=== PATIENT | male | born 1945 | race Caucasian/White ===

== ENCOUNTER → 2022-05-24 08:48 | Outpatient (CLI) | payer MEDICARE, SELFPAY ==
[2022-05-24 20:24] LABS: Cholesterol 158 mg/dL (140-199); Glucose 95 mg/dL (80-110); HDL Cholesterol 85 mg/dL (40-60); LDL Cholesterol Calculated 59 mg/dL (<100); Triglycerides 68 mg/dL (35-150)
[2022-05-24 20:44] LABS: Prostate Specific Antigen Scrn 1.06 ng/mL (0.1-4.0)
[2022-05-26 18:52] LABS: Hep C Virus Ab w/Reflex Quant NEGATIVE s/c (NEGATIVE)
== END ==
PROVIDERS: PCP Family Medicine; Visit Provider Family Medicine
DX: Z13.1 Encounter for screening for diabetes mellitus (principal); Z12.5 Encounter for screening for malignant neoplasm of prostate; Z11.59 Encounter for screening for other viral diseases; Z13.220 Encounter for screening for lipoid disorders
CPT/HCPCS: 80061; 82947; 86803; G0103

== ENCOUNTER → 2023-12-13 13:27 | Outpatient (CLI) | payer MEDICARE, SELFPAY ==
[2023-12-13 18:55] LABS: Add Manual Diff / Slide Review NO; Basophils Absolute Auto 0 /uL (0-100); Basophils Percent Auto 0.4 % (0-2); Eosinophils Absolute Auto 200 /uL (0-450); Eosinophils Percent Auto 3.6 % (2-4); Hematocrit 39.1 % (41-53); Hemoglobin 13.3 g/dL (13.5-17.5); Lymphocytes Absolute Auto 1300 /uL (1100-4500); Lymphocytes Percent Auto 29.9 % (25-40); Mean Corpuscular Hemoglobin 30.6 PG (26-34); Mean Corpuscular Volume 89.9 fL (80-100); Monocytes Absolute Auto 600 /uL (0-900); Monocytes Percent Auto 14.1 % (3-14); Neutrophils Absolute Auto 2300 /uL (1500-7000); Platelet Count 206 X10^3/uL (150-400); Red Blood Cell Count 4.35 X10^6/uL (4.5-5.9); Red Cell Distribution Width 14.7 % (11.6-14.8); White Blood Cell Count 4.4 X10^3/uL (4.5-11.0)
[2023-12-13 19:12] LABS: BUN Creatinine Ratio 25.5 (6-22); Blood Urea Nitrogen 25 mg/dL (9-20); Calcium 9.4 mg/dL (8.4-10.2); Carbon Dioxide 26 mmol/L (22-32); Chloride 105 mmol/L (98-107); Estimated Glomerular Filt Rate > 60 mL/min (>60); Glucose 99 mg/dL (80-110); HEMOLYSIS < 15 (0-50); Potassium 4.2 mmol/L (3.4-5.1); Sodium 136 mmol/L (137-145)
[2023-12-13 19:47] LABS: TSH w/ Reflex to FT4 1.62 uIU/mL (0.47-4.68)
== END ==
PROVIDERS: PCP Family Medicine; Visit Provider Family Medicine
DX: R00.2 Palpitations (principal); R07.89 Other chest pain
CPT/HCPCS: 80048; 84443; 85025

== ENCOUNTER → 2024-01-04 11:02 | Outpatient (CLI) | payer MEDICARE, SELFPAY ==
[2024-01-04 18:54] LABS: Reticulocyte Count, Percent 0.5 % (0.9-2.6)
[2024-01-04 19:07] LABS: HEMOLYSIS < 15 (0-50)
[2024-01-04 19:12] LABS: Iron 70 ug/dL (49-181)
[2024-01-04 19:32] LABS: Percent Iron Saturation 30 % (20-50); Total Iron Binding Capacity 233 ug/dL (261-462); Transferrin 212 mg/dL (206-381)
[2024-01-04 21:13] LABS: Vitamin B12 208 pg/mL (239-931)
== END ==
PROVIDERS: PCP Family Medicine; Visit Provider Family Medicine
DX: D64.9 Anemia, unspecified (principal)
CPT/HCPCS: 82607; 83540; 83550; 85045

== ENCOUNTER → 2024-02-01 12:07 | Outpatient (CLI) | payer MEDICARE, SELFPAY ==
[2024-02-01 20:01] LABS: D Dimer 771 ng/ml (<500)
[2024-02-01 20:26] LABS: Add Manual Diff / Slide Review NO; Basophils Absolute Auto 0 /uL (0-100); Basophils Percent Auto 0.4 % (0-2); Eosinophils Absolute Auto 200 /uL (0-450); Eosinophils Percent Auto 3.8 % (2-4); Hematocrit 42.1 % (41-53); Hemoglobin 13.9 g/dL (13.5-17.5); Lymphocytes Absolute Auto 1100 /uL (1100-4500); Lymphocytes Percent Auto 25.2 % (25-40); Mean Corpuscular HGB Conc 32.9 % (30-36); Mean Corpuscular Hemoglobin 29.9 PG (26-34); Mean Corpuscular Volume 90.7 fL (80-100); Monocytes Absolute Auto 600 /uL (0-900); Monocytes Percent Auto 14.7 % (3-14); Neutrophils Absolute Auto 2400 /uL (1500-7000); Neutrophils Percent Auto 55.9 % (50-75); Platelet Count 215 X10^3/uL (150-400); Red Blood Cell Count 4.64 X10^6/uL (4.5-5.9); Red Cell Distribution Width 14.3 % (11.6-14.8); White Blood Cell Count 4.3 X10^3/uL (4.5-11.0)
[2024-02-01 20:35] LABS: NT-proBNP (BNP-Adult 18+) 4170 pg/mL (<450)
[2024-02-01 21:16] LABS: Vitamin B12 525 pg/mL (239-931)
== END ==
PROVIDERS: PCP Family Medicine; Visit Provider Family Medicine
DX: R06.02 Shortness of breath (principal); D64.9 Anemia, unspecified; R06.09 Other forms of dyspnea; E53.8 Deficiency of other specified B group vitamins
CPT/HCPCS: 82607; 83880; 85025; 85379

== ENCOUNTER 2024-02-02 14:14 | Inpatient (IN) | payer MEDICARE, SELFPAY ==
[2024-02-02] VITALS (8 sets, daily range): BP systolic 115–159; BP diastolic 50–82; PULSE 58–74; RESP 16–24; TEMP 35.9–37; O2SAT 90–98; BMI 22.3; BMI 22.8
--- NOTE | 2024-02-02 14:53 | DI.CT.S_ITS ---
PROCEDURE: CT ANGIO CHEST PE PROTOCOL INDICATIONS: SOB,elevated dimer TECHNIQUE: After the administration of intravenous contrast, 2 mm thick sections acquired from the pulmonary apices to the posterior costophrenic angles. 3-dimensional maximum intensity projection (MIP) coronal and sagittal reformats were then acquired through the thorax. For radiation dose reduction, the following was used: automated exposure control, adjustment of mA and/or kV according to patient size. COMPARISON: [facility] ([place]), CR, XR CHEST 2V, 01/31/2024, 9:42. FINDINGS: Image quality: Diagnostic. Pulmonary arteries: Pulmonary arteries are normal in size, and demonstrate no intraluminal filling defects to suggest central pulmonary embolism. Lower Neck: No enlarged lymph nodes. Thyroid: No thyroid nodules which require sonographic follow up, per consensus guidelines. Axillae: No enlarged lymph nodes. Chest Wall: Unremarkable. Bones: Unremarkable. Lungs and Pleura: No pneumothorax but there are bilateral moderate pleural effusions that appear free flowing and water in density. No mass lesion found. At least compressive atelectasis is present at each lung base. Superimposed pneumonia in these areas cannot be entirely excluded. Heart: Heart size is globally enlarged. No pericardial effusion. Thoracic Vessels: No aortic aneurysm. Mediastinum and Kellee: No enlarged lymph nodes. Esophagus: No wall thickening. No hiatal hernia. Upper Abdomen: Visualized upper abdomen solid organs and bowel loops appear normal. IMPRESSION: No pulmonary embolus. Global cardiomegaly, suspect chronic CHF pattern with bilateral pleural effusions and adjacent posterior lung base atelectasis. A definite lung mass or pneumonia in these areas cannot be entirely excluded but is not suspected. If pneumonia is superimposed it most likely would be at the left lower lobe. Dictated by: Wilmar Castano M.D. on 02/02/2024 at 16:44 Approved by: Wilmar Castano M.D. on 02/02/2024 at 16:47
[2024-02-02 15:10] LABS: Add Manual Diff / Slide Review NO; Basophils Absolute Auto 0 /uL (0-100); Basophils Percent Auto 0.5 % (0-2); Eosinophils Absolute Auto 200 /uL (0-450); Hematocrit 43.7 % (41-53); Hemoglobin 14.3 g/dL (13.5-17.5); Lymphocytes Absolute Auto 1000 /uL (1100-4500); Lymphocytes Percent Auto 21.9 % (25-40); Mean Corpuscular HGB Conc 32.7 % (30-36); Mean Corpuscular Hemoglobin 29.5 PG (26-34); Mean Corpuscular Volume 90.3 fL (80-100); Monocytes Absolute Auto 600 /uL (0-900); Monocytes Percent Auto 12.7 % (3-14); Neutrophils Absolute Auto 2600 /uL (1500-7000); Neutrophils Percent Auto 60.9 % (50-75); Platelet Count 228 X10^3/uL (150-400); Red Blood Cell Count 4.84 X10^6/uL (4.5-5.9); Red Cell Distribution Width 14.5 % (11.6-14.8); White Blood Cell Count 4.4 X10^3/uL (4.5-11.0)
[2024-02-02 15:23] LABS: NT-proBNP (BNP-Adult 18+) 4350 pg/mL (<450)
[2024-02-02 15:36] LABS: BUN Creatinine Ratio 29.4 (6-22); Blood Urea Nitrogen 25 mg/dL (9-20); Calcium 9.1 mg/dL (8.4-10.2); Carbon Dioxide 25 mmol/L (22-32); Chloride 107 mmol/L (98-107); Estimated Glomerular Filt Rate > 60 mL/min (>60); Glucose 84 mg/dL (80-110); Sodium 136 mmol/L (137-145)
[2024-02-02 15:37] LABS: HEMOLYSIS 71 (0-50)
[2024-02-02 15:38] LABS: Potassium 4.3 mmol/L (3.4-5.1)
[2024-02-02 15:48] LABS: Troponin I 0.035 ng/mL (0.01-0.034)
--- NOTE | 2024-02-02 15:59 | EKG_ITS ---
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
--- NOTE | 2024-02-02 16:02 | ED_ITS ---
HPI - SOB/Dyspnea <Breanna Velazco PA-C - Last Filed: 02/02/24 19:29> General Chief Complaint: Shortness of Breath/Dyspnea Stated Complaint: sent by , heart issues Time Seen by Provider: 02/02/24 14:59 History of Present Illness HPI Narrative: Mr. Fernandez is a very pleasant 78-year-old male with a new medical history of anemia, nonsustained ventricular tachycardia, pleural effusion who presents to the emergency department after being sent by his PCP at [facility] for SOB x 4 months with outpatient lab work revealing elevated D-dimer and BNP today. His contributes to the history. Patient noticed in the beginning of October that he became more short of breath on exertion and it has been progressively worsening to the point where he is now short of breath even at rest. In October he met with his primary care doctor who evaluated him with a Holter monitor labs, etc.. This week his shortness of breath became so much worse that he saw his primary care doctor again and had additional lab work and an x-ray performed. Chest x-ray revealed bilateral pleural effusion. Urgent thoracentesis, echocardiogram, exercise stress test were ordered. Patient states thoracentesis is scheduled for Monday however the other test could not be scheduled until February. He comes to the ER today however due to elevated BNP and D-dimer concerning for new onset CHF versus PE. At this time patient admits to his chronic shortness of breath but denies any chest pain, abdominal pain, nausea, vomiting, fevers, chills, cough, other concerns. He has no lower extremity edema. He reports difficulty with lying flat night. Related Data Previous Rx's Medication Instructions Recorded metoprolol succinate 25 mg 12.5 mg (1/2 x 25 mg) PO DAILY #45 01/10/24 tablet,extended release 24 hr tabs trazodone 50 mg tablet 50 mg PO DAILY PRN insomnia #30 01/31/24 tabs Allergies Allergy/AdvReac Type Severity Reaction Status Date / Time No Known Drug Allergies Allergy Verified 01/31/24 09:13 Review of Systems <Breanna Velazco PA-C - Last Filed: 02/02/24 19:29> Review of Systems ROS Unobtainable: All systems reviewed & are unremarkable except as noted in HPI and below Patient History <Breanna Velazco PA-C - Last Filed: 02/02/24 19:29> Medical History Cough Fractures Mumps Chicken pox Social History household members: spouse Smoking Status: Former smoker alcohol intake: current Smoking Status: Former smoker Exam <Breanna Velazco PA-C - Last Filed: 02/02/24 19:29> Narrative Exam Narrative: GENERAL: 78 year old patient appears stated age. Well-developed patient, in no acute distress. HEAD: Atraumatic. Normocephalic. EYES: Extraocular motions intact. No scleral icterus. No injection or drainage. ENT: Nose without bleeding, purulent drainage. Throat without erythema, tonsillar hypertrophy or exudate. Airway patent. NECK: Trachea midline. Cervical ROM intact. CARDIOVASCULAR: Regular rate and rhythm. RESPIRATORY: ?Nonlabored respirations. ?Speaking in clear, full sentences. ?No wheezing. Diminished breath sounds in bilateral lower lobes. GASTROINTESTINAL: Abdomen soft, non-tender, nondistended. EXTREMITIES: No edema or joint tenderness. NEURO: AOx3. ?Clear speech. ?Moves all 4 extremities appropriately. SKIN: No rash or erythema of visible areas Initial Vital Signs Initial Vital Signs: Vital Signs Temperature 97.5 F L 02/02/24 14:21 Pulse Rate 71 02/02/24 14:21 Respiratory Rate 16 02/02/24 14:21 Blood Pressure 149/80 H 02/02/24 14:21 Pulse Oximetry 97 02/02/24 14:21 Oxygen Delivery Method Room Air 02/02/24 14:21 <Hardeep Mortensen MD - Last Filed: 02/02/24 20:09> Initial Vital Signs Initial Vital Signs: Vital Signs Temperature 97.5 F L 02/02/24 14:21 Pulse Rate 71 02/02/24 14:21 Respiratory Rate 16 02/02/24 14:21 Blood Pressure 149/80 H 02/02/24 14:21 Pulse Oximetry 97 02/02/24 14:21 Oxygen Delivery Method Room Air 02/02/24 14:21 Course <Breanna Velazco PA-C - Last Filed: 02/02/24 19:29> Orders Ordered: ED Orders 02/02/24 14:39 BNP [NT-proBNP (BNP-Adult 18+)] Stat CBC Auto Diff [Complete Blood Count AUTO DIFF] Stat 02/02/24 14:53 CT angio chest PE protocol Stat 02/02/24 15:05 BMP [Basic Metabolic Panel] Stat Troponin I Stat 02/02/24 15:59 EKG-12 Lead Stat EKG-12 Lead Stat Acetaminophen (Acetaminophen 325 Mg Tablet) 650 mg PO Q6H PRN PRN Reason: Fever/Mild Pain (1-3) Al Hydrox/Mg Hydrox/Simethicone (Mag Hydrox/Alum/Simeth 30 Ml Udc) 30 ml PO Q6HR PRN PRN Reason: Dyspepsia Furosemide (Furosemide 40 Mg/4 Ml Vial) 40 mg IV Q12HR SIVA Heparin Sodium (Porcine) (Heparin 5,000 Unit/Ml Vial) 5,000 unit SUBCUT BID SIVA Magnesium Hydroxide (Magnesium Hydroxide 30 Ml Udc) 30 ml PO DAILY PRN PRN Reason: Constipation Naloxone HCl (Naloxone 0.4 Mg/Ml Vial) 0.2 mg IV Q2MIN PRN PRN Reason: Opiate Reversal Ondansetron HCl (Ondansetron 4 Mg/2 Ml Inj) 4 mg IV Q8HR PRN PRN Reason: Nausea And Vomiting Vital Signs Vital signs: Vital Signs - 8 hr 02/02/24 14:21 02/02/24 16:00 02/02/24 16:15 Temperature 97.5 F L Pulse Rate 71 63 65 Respiratory Rate 16 20 21 Blood Pressure 149/80 H 138/82 140/77 Pulse Oximetry 97 98 96 Oxygen Delivery Method Room Air Room Air 02/02/24 16:30 02/02/24 16:45 02/02/24 17:00 Temperature Pulse Rate 62 62 63 Respiratory Rate 24 20 18 Blood Pressure 126/79 115/74 138/73 Pulse Oximetry 95 95 95 Oxygen Delivery Method Room Air Room Air <Hardeep Mortensen MD - Last Filed: 02/02/24 20:09> Orders Ordered: ED Orders 02/02/24 14:39 BNP [NT-proBNP (BNP-Adult 18+)] Stat CBC Auto Diff [Complete Blood Count AUTO DIFF] Stat 02/02/24 14:53 CT angio chest PE protocol Stat 02/02/24 15:05 BMP [Basic Metabolic Panel] Stat Troponin I Stat 02/02/24 15:59 EKG-12 Lead Stat EKG-12 Lead Stat Acetaminophen (Acetaminophen 325 Mg Tablet) 650 mg PO Q6H PRN PRN Reason: Fever/Mild Pain (1-3) Al Hydrox/Mg Hydrox/Simethicone (Mag Hydrox/Alum/Simeth 30 Ml Udc) 30 ml PO Q6HR PRN PRN Reason: Dyspepsia Furosemide (Furosemide 40 Mg/4 Ml Vial) 40 mg IV Q12HR SIVA Heparin Sodium (Porcine) (Heparin 5,000 Unit/Ml Vial) 5,000 unit SUBCUT BID SIVA Magnesium Hydroxide (Magnesium Hydroxide 30 Ml Udc) 30 ml PO DAILY PRN PRN Reason: Constipation Naloxone HCl (Naloxone 0.4 Mg/Ml Vial) 0.2 mg IV Q2MIN PRN PRN Reason: Opiate Reversal Ondansetron HCl (Ondansetron 4 Mg/2 Ml Inj) 4 mg IV Q8HR PRN PRN Reason: Nausea And Vomiting Vital Signs Vital signs: Vital Signs - 8 hr 02/02/24 14:21 02/02/24 16:00 02/02/24 16:15 Temperature 97.5 F L Pulse Rate 71 63 65 Respiratory Rate 16 20 21 Blood Pressure 149/80 H 138/82 140/77 Pulse Oximetry 97 98 96 Oxygen Delivery Method Room Air Room Air 02/02/24 16:30 02/02/24 16:45 02/02/24 17:00 Temperature Pulse Rate 62 62 63 Respiratory Rate 24 20 18 Blood Pressure 126/79 115/74 138/73 Pulse Oximetry 95 95 95 Oxygen Delivery Method Room Air Room Air MDM - SOB/Dyspnea <Breanna Velazco PA-C - Last Filed: 02/02/24 19:29> Medical Records Attestation: I reviewed the patient's medical records. Lab Data 02/02/24 14:39 02/02/24 15:05 Labs: Lab Results 02/02/24 02/02/24 Range/Units 14:39 15:05 WBC 4.4 L (4.5-11.0) X10^3/uL RBC 4.84 (4.5-5.9) X10^6/uL Hgb 14.3 (13.5-17.5) g/dL Hct 43.7 (41-53) % MCV 90.3 (80-100) fL MCH 29.5 (26-34) PG MCHC 32.7 (30-36) % RDW 14.5 (11.6-14.8) % Plt Count 228 (150-400) X10^3/uL Neut % (Auto) 60.9 (50-75) % Lymph % (Auto) 21.9 L (25-40) % [place] % (Auto) 12.7 (3-14) % Eos % (Auto) 4.0 (2-4) % Baso % (Auto) 0.5 (0-2) % Neut # (Auto) 2600 (6164-7518) /uL Lymph # (Auto) 1000 L (9644-4999) /uL [place] # (Auto) 600 (0-900) /uL Eos # (Auto) 200 (0-450) /uL Baso # (Auto) 0 (0-100) /uL Sodium 136 L (137-145) mmol/L Potassium 4.3 (3.4-5.1) mmol/L Chloride 107 (98-107) mmol/L Carbon Dioxide 25 (22-32) mmol/L BUN 25 H (9-20) mg/dL Creatinine 0.85 (0.66-1.25) mg/dL Estimated GFR > 60 (>60) mL/min BUN/Creatinine Ratio 29.4 H (6-22) Glucose 84 (80-110) mg/dL Calcium 9.1 (8.4-10.2) mg/dL Troponin I 0.035 H (0.01-0.034) ng/mL NT-Pro-B Natriuret Pep 4350 H (<450) pg/mL Imaging Data CTA Chest: Radiologist's Impression: PROCEDURE: CT ANGIO CHEST PE PROTOCOL INDICATIONS: SOB,elevated dimer TECHNIQUE: After the administration of intravenous contrast, 2 mm thick sections acquired from the pulmonary apices to the posterior costophrenic angles. 3-dimensional maximum intensity projection (MIP) coronal and sagittal reformats were then acquired through the thorax. For radiation dose reduction, the following was used: automated exposure control, adjustment of mA and/or kV according to patient size. COMPARISON: [facility] ([place]), CR, XR CHEST 2V, 01/31/2024, 9:42. FINDINGS: Image quality: Diagnostic. Pulmonary arteries: Pulmonary arteries are normal in size, and demonstrate no intraluminal filling defects to suggest central pulmonary embolism. Lower Neck: No enlarged lymph nodes. Thyroid: No thyroid nodules which require sonographic follow up, per consensus guidelines. Axillae: No enlarged lymph nodes. Chest Wall: Unremarkable. Bones: Unremarkable. Lungs and Pleura: No pneumothorax but there are bilateral moderate pleural effusions that appear free flowing and water in density. No mass lesion found. At least compressive atelectasis is present at each lung base. Superimposed pneumonia in these areas cannot be entirely excluded. Heart: Heart size is globally enlarged. No pericardial effusion. Thoracic Vessels: No aortic aneurysm. Mediastinum and Kellee: No enlarged lymph nodes. Esophagus: No wall thickening. No hiatal hernia. Upper Abdomen: Visualized upper abdomen solid organs and bowel loops appear normal. IMPRESSION: No pulmonary embolus. Global cardiomegaly, suspect chronic CHF pattern with bilateral pleural effusions and adjacent posterior lung base atelectasis. A definite lung mass or pneumonia in these areas cannot be entirely excluded but is not suspected. If pneumonia is superimposed it most likely would be at the left lower lobe. MDM Narrative Medical decision making narrative: 78-year-old male with a new medical history of anemia, nonsustained ventricular tachycardia, pleural effusion who presents to the emergency department after being sent by his PCP at [facility] for SOB x 4 months with outpatient lab work revealing elevated D-dimer and BNP today. Differential diagnosis includes but is not limited to new onset CHF, CHF exacerbation, PE, ACS/WA, pneumonia, pleural effusions, malignancy, etc. On exam the patient is in no acute distress, nontoxic appearing, vital signs within normal limits. He has no peripheral edema. He does have diminished breath sounds bilaterally in the lower lobes. He had outpatient labs revealing elevated BNP and elevated D-dimer. CTA chest PE protocol and basic labs were ordered while the patient was in the waiting room. I reviewed the patient's PCP notes who sent him to the ER. Patient does have history of runs of SVT which he was started on metoprolol 12.5 mg for. Outpatient thoracentesis, echocardiogram, exercise stress test were ordered but not yet completed. Patient was evaluated by myself in the fast track area of the emergency department. At my time of evaluation his troponin has already returned and it is indeterminate at 0.035. His BNP is elevated at 4350. BUN is 25, creatinine is 0.85. ECG ordered and reviewed by attending physician. Rate of 65 beats per minute regular rhythm with occasional PVCs. CTA chest reveals no pulmonary embolus. There is global cardiomegaly, suspect chronic CHF pattern with bilateral pleural effusions and adjacent posterior lung base atelectasis. A definite lung mass or pneumonia in these areas can not be entirely excluded but is not suspected. If pneumonia superimposed it most likely would be at the left lower lobe. However patient denies cough, fevers, chills, flu/upper respiratory infection type symptoms. At 1700 I discussed the case with the ER attending physician and we both agree patient is appropriate for admission for new diagnosis CHF. Discussed with hospitalist Dr. Alford who agrees to admit the patient to observation. Patient his are agreeable to admission. He is stable for transfer to the floor at this time. <Hardeep Mortensen MD - Last Filed: 02/02/24 20:09> Lab Data Labs: Lab Results 02/02/24 02/02/24 Range/Units 14:39 15:05 WBC 4.4 L (4.5-11.0) X10^3/uL RBC 4.84 (4.5-5.9) X10^6/uL Hgb 14.3 (13.5-17.5) g/dL Hct 43.7 (41-53) % MCV 90.3 (80-100) fL MCH 29.5 (26-34) PG MCHC 32.7 (30-36) % RDW 14.5 (11.6-14.8) % Plt Count 228 (150-400) X10^3/uL Neut % (Auto) 60.9 (50-75) % Lymph % (Auto) 21.9 L (25-40) % [place] % (Auto) 12.7 (3-14) % Eos % (Auto) 4.0 (2-4) % Baso % (Auto) 0.5 (0-2) % Neut # (Auto) 2600 (3701-0646) /uL Lymph # (Auto) 1000 L (6333-7537) /uL [place] # (Auto) 600 (0-900) /uL Eos # (Auto) 200 (0-450) /uL Baso # (Auto) 0 (0-100) /uL Sodium 136 L (137-145) mmol/L Potassium 4.3 (3.4-5.1) mmol/L Chloride 107 (98-107) mmol/L Carbon Dioxide 25 (22-32) mmol/L BUN 25 H (9-20) mg/dL Creatinine 0.85 (0.66-1.25) mg/dL Estimated GFR > 60 (>60) mL/min BUN/Creatinine Ratio 29.4 H (6-22) Glucose 84 (80-110) mg/dL Calcium 9.1 (8.4-10.2) mg/dL Troponin I 0.035 H (0.01-0.034) ng/mL NT-Pro-B Natriuret Pep 4350 H (<450) pg/mL Discharge Plan Departure Patient Disposition: Admitted as Observation Clinical Impression: New onset of congestive heart failure, WILLETT (dyspnea on exertion) Admit Date/Time: 02/02/24 17:05 Admit Provider: Faizan Alford ED Sign-out <Hardeep Mortensen MD - Last Filed: 02/02/24 20:09> Cosign ED Attending Cosnarcisoature Attestation: I was immediately available in the department for consultation. This documentation has been reviewed and I agree with assessment and plan. Supervised by Hardeep Mortensen MD
--- NOTE | 2024-02-02 17:02 | P.HP_ITS ---
History of Present Illness History of Present Illness Date Patient Seen: 02/02/24 Chief complaint: sent by , heart issues Narrative: The patient was a 78-year-old male with a 4 month history of progressive shortness a breath with exertion. His doctor, on [facility], obtained a chest x-ray of in pleural effusions and sent him in for further evaluation. Here he was found to have a negative CTA for PE but bilateral pleural effusions and evidence of acute heart failure. The request is admit the patient for further evaluation as he lives in [facility]. The patient was not hypoxic. He denies history of heart disease. No episodes of chest pain. He was had orthopnea in his been propping himself up. No leg edema. He was have a family history of heart attack in his mother. He denies any history of diuretics or untreated hypertension. He was somewhat hypertensive today but states that that is likely situational. He quit smoking about 40 years ago. He lives in [facility], with his . 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 A thoracentesis was ordered outpatient for and scheduled for Monday here. It look in his chest x-ray am not sure he will necessarily need a thoracentesis. I believe that his symptoms will likely be controlled with diuretics and the they relate to a new diagnosis of heart failure. [facility] Medical History Cough Fractures Mumps Chicken pox Social History Smoking Status: Former smoker Meds Home Medications and Allergies Home Medications Medication Instructions Recorded Confirmed Type metoprolol succinate 25 mg 12.5 mg (1/2 x 25 mg) PO DAILY #45 01/10/24 01/31/24 Rx tablet,extended release 24 hr tabs trazodone 50 mg tablet 50 mg PO DAILY PRN insomnia #30 01/31/24 01/31/24 Rx tabs Allergies Allergy/AdvReac Type Severity Reaction Status Date / Time No Known Drug Allergies Allergy Verified 01/31/24 09:13 Review of Systems Review of Systems Narrative: All else reviewed and otherwise unremarkable except as noted in the history and physical. Exam Vital Signs (past 8 hours): - 02/02/24 14:21 02/02/24 16:00 02/02/24 16:30 Temperature 97.5 F L Pulse Rate 71 63 62 Respiratory Rate 16 20 24 Blood Pressure 149/80 H 138/82 126/79 Pulse Oximetry 97 98 95 Oxygen Delivery Method Room Air Room Air Room Air 02/02/24 16:45 02/02/24 17:00 Temperature Pulse Rate 62 63 Respiratory Rate 20 18 Blood Pressure 115/74 138/73 Pulse Oximetry 95 95 Oxygen Delivery Method Room Air Oxygen Delivery Method Room Air Narrative Exam Narrative: NAD, alert and oriented, fluent speech, calm. Normocephalic skull, EOMI, anicteric sclera, symmetric pupils. Oropharynx unremarkable, no droop. Neck supple, midline trachea, no adenopathy. Lungs notable for crackles in the bases, normal rate and effort. Heart regular, no murmur gallop or rub. Abdomen is soft, non distended and non tender. Extremities are free of edema. Skin is free of rash or lesions. Joints are not swollen or deformed. Judgment appears to be normal. Objective ECG Impression: Sinus rhythm with occasional premature ventricular complexes Left ventricular hypertrophy with QRS widening and repolarization abnormality ( [place] product ) Cannot rule out Septal infarct , age undetermined Imaging Multiple studies:: Radiologist's impression: Chest CTA: No pulmonary embolus. Global cardiomegaly, suspect chronic CHF pattern with bilateral pleural effusions and adjacent posterior lung base atelectasis. A definite lung mass or pneumonia in these areas cannot be entirely excluded but is not suspected. If pneumonia is superimposed it most likely would be at the left lower lobe. Chest x-ray: Bilateral effusions with superimposed consolidative opacities. The latter may represent atelectasis versus Labs 02/02/24 14:39 02/02/24 15:05 Labs: Laboratory Results - last 24 hr 02/02/24 02/02/24 14:39 15:05 WBC 4.4 L RBC 4.84 Hgb 14.3 Hct 43.7 MCV 90.3 MCH 29.5 MCHC 32.7 RDW 14.5 Plt Count 228 Neut % (Auto) 60.9 Lymph % (Auto) 21.9 L [place] % (Auto) 12.7 Eos % (Auto) 4.0 Baso % (Auto) 0.5 Neut # (Auto) 2600 Lymph # (Auto) 1000 L [place] # (Auto) 600 Eos # (Auto) 200 Baso # (Auto) 0 Sodium 136 L Potassium 4.3 Chloride 107 Carbon Dioxide 25 BUN 25 H Creatinine 0.85 Estimated GFR > 60 BUN/Creatinine Ratio 29.4 H Glucose 84 Calcium 9.1 Troponin I 0.035 H NT-Pro-B Natriuret Pep 4350 H Assessment & Plan Assessment & Plan narrative: 1. Acute congestive heart failure with unknown EF, present on admission and active. Plan: -echo to assess cardiac function -diuresis with Lasix 40 IV q.12 and monitor electrolytes -monitor pulmonary status -trend troponins He is full resuscitation confirmed today. He is , is proxy decision maker. KARTIK is 1 night, observation status. Time-Based Coding :: 35 min spent with patient and on the chart (including review of chart, obtaining history, exam, reviewing outside data, placing orders, documenting exam and treatment plan, and counseling patient) on 02/01. Quality MIPS - Admit I confirm the patient?s Advance Care Plan is present, Code status is documented, Surrogate decision maker is in patient?s record [If Yes, STOP here]: Yes MIPS - Meds 'Current medications' to include all prescriptions, [id number] products, herbals, cannabis/cannabidiol products, and vitamin/mineral/dietary (nutritional) supplements. I have utilized all available resources to obtain, update, or review the patient?s current medications. [If Yes, STOP here]: Yes
--- NOTE | 2024-02-02 17:15 | DI.ECHO.S_ITS ---
[facility]+ [facility] : : [address] : : [place] : : [id number] : : Phone: [phone] Echocardiogram Report + + :Name: NATALI TOVAR Study Date: 02/03/2024 Height: 74 in : :[facility] ReadingLocation: Weight: 174 lb : : Gender: Male BSA: 2.0 m2 : :: 1945 Age: 78 yrs BP: 131/78 mmHg: :Reason For Study: CONGESTIVE HEART FAILURE : :Ordering Physician: ISI, : :JAY Galdamez Performed By: Thierry Saldana : :Referring: JAY SNOWDEN : + + Interpretation Summary Sinus bradycardia. Heart rate is 54-57 bpm with wide QRS complexes. Moderately dilated left ventricle with normal wall thickness. Global hypokinesis with ejection fraction 25-30%. There is spontaneous left ventricular echo contrast consistent with cardiomyopathy. EPSS is 1.8 cm consistent with cardiomyopathy. Severely enlarged left atrium and moderately enlarged right atrium. Mildly dilated RV with normal RV systolic function. There is posterior mitral valve leaflet prolapse with mild associated mitral regurgitation. Aortic sclerosis with mild regurgitation. Estimated PA systolic pressure is 39 mmHg assuming right atrial pressure of 3 mmHg. Large left pleural effusion. No prior study available for comparison. Procedure: A two-dimensional transthoracic echocardiogram with color flow and Doppler was performed. The study quality was technically good. There is no prior echocardiogram noted for this patient. The patient was in normal sinus rhythm during the exam. Left Ventricle: The left ventricle is moderately dilated. Left ventricular wall thickness is mildly increased. There is no ventricular septal defect visualized. The ejection fraction is estimated to be 25-30%. There is moderate to severe global hypokinesis of the left ventricle. Diastolic parameters suggest probable normal left ventricular diastolic function and normal filling pressures. Right Ventricle: The right ventricle is mildly dilated. The right ventricular systolic function is normal. Atria: The left atrium is severely dilated. The right atrium is moderately dilated. There is no Doppler evidence for an interatrial shunt. Mitral Valve: The mitral valve leaflets appear mildly thickened, but open well. There is mild mitral regurgitation. Aortic Valve: The aortic valve is trileaflet. The aortic valve is mildly calcified. There is mild to moderate aortic regurgitation. Tricuspid Valve: The tricuspid valve leaflets are thin and pliable. There is mild to moderate tricuspid regurgitation. The right ventricular systolic pressure is estimated to be at least 39 mmHg based on an estimated right atrial pressure of 3 mm Hg. Pulmonic Valve: The pulmonic valve leaflets appear thickened, but open well. There is no pulmonic valvular regurgitation. Great Vessels: The aortic root is borderline dilated. The ascending aorta could not be visualized. The pulmonary artery is normal size. The IVC is of normal diameter and collapses greater than 50% with a sniff. This suggests a low right atrial pressure of 3 mm Hg. Pericardium/ Pleura There is no pericardial effusion. There is a large left- sided pleural effusion. MMode/2D Measurements & Calculations LVIDd: 6.1 cm LVOT diam: 2.2 cm LVIDs: 5.3 cm Ao root diam: 3.7 cm FS: 13.1 % EPSS: 1.8 cm IVSd: 0.96 cm LVPWd: 1.3 cm LV odom. diameter/BSA (cm/m^2): 3.0 LV sys. diameter/BSA (cm/m^2): 2.6 LA A2 area: 27.5 cm2 RA long axis: 6.1 cm LA A4 area: 33.7 cm2 RA area: 25.7 cm2 LA length (vol): 6.7 cm RA vol: 91.8 ml LA vol: 118.3 ml RA : 44.8 ml/m2 LA vol index: 57.8 ml/m2 IVC diam: 1.7 cm RVD1 (basal): 4.6 cm RVD2 (mid): 3.5 cm TAPSE: 3.0 cm Doppler Measurements & Calculations Ao V2 max: 125.4 cm/sec LVOT Max Tigre: 115.4 cm/sec Ao V2 mean: 99.0 cm/sec LV V1 max P.3 mmHg Ao max P.3 mmHg LV V1 VTI: 19.8 cm Ao mean P.2 mmHg KEYONNA(I,D): 3.4 cm2 Ao V2 VTI: 21.8 cm KEYONNA(V,D): 3.4 cm2 sev ratio: 0.91 KEYONNA indexed to BSA (cm^2/m^2): 1.6 AI P1/2t: 540.6 msec AI dec slope: 228.7 cm/sec2 MV E max tigre: 45.0 cm/sec TR max tigre: 299.0 cm/sec MV A max tigre: 23.9 cm/sec TR max P.8 mmHg MV E/A: 1.9 PA V2 max: 80.4 cm/sec Med Peak E' Tigre: 4.0 cm/sec PA V2 mean: 50.1 cm/sec E/E' med: 11.4 PA mean P.2 mmHg Lat Peak E' Tigre: 4.1 cm/sec PA pr(Accel): 34.5 mmHg E/E' lat: 11.1 E/e' average: 11.2 MV dec time: 0.22 sec SV(LVOT): 73.3 ml Electronically signed by: Annetta Zamudio M.D. on Reading Physician:02/03/2024 11:49 AM
--- NOTE | 2024-02-02 18:23 | PC.NURSE ---
Patient is alert and oriented x4, he has been having some sob for about a month per ER nurse. He is on RA and his lung sounds are diminished, he shows bilateral PEs on CT scan, and new onset CHF per ER nurse. Patient oriented to room, he is eating his dinner and denies discomfort.
[2024-02-02] MEDS: HEPARIN 5,000 UNIT/ML VIAL 5000 UNIT SUBCUT (20:22)
[2024-02-02 22:03] LABS: Troponin I 0.059 ng/mL (0.01-0.034)
[2024-02-03 05:11] LABS: Add Manual Diff / Slide Review NO; Basophils Absolute Auto 0 /uL (0-100); Basophils Percent Auto 0.5 % (0-2); Eosinophils Absolute Auto 200 /uL (0-450); Eosinophils Percent Auto 3.5 % (2-4); Hematocrit 42.7 % (41-53); Hemoglobin 14.3 g/dL (13.5-17.5); Lymphocytes Absolute Auto 800 /uL (1100-4500); Lymphocytes Percent Auto 16.1 % (25-40); Mean Corpuscular HGB Conc 33.5 % (30-36); Mean Corpuscular Volume 89.7 fL (80-100); Monocytes Absolute Auto 500 /uL (0-900); Monocytes Percent Auto 10.3 % (3-14); Neutrophils Absolute Auto 3400 /uL (1500-7000); Neutrophils Percent Auto 69.6 % (50-75); Platelet Count 209 X10^3/uL (150-400); Red Blood Cell Count 4.76 X10^6/uL (4.5-5.9); Red Cell Distribution Width 14.5 % (11.6-14.8); White Blood Cell Count 4.8 X10^3/uL (4.5-11.0)
[2024-02-03 05:22] LABS: BUN Creatinine Ratio 23.9 (6-22); Blood Urea Nitrogen 22 mg/dL (9-20); Calcium 9.4 mg/dL (8.4-10.2); Carbon Dioxide 25 mmol/L (22-32); Chloride 105 mmol/L (98-107); Estimated Glomerular Filt Rate > 60 mL/min (>60); Glucose 95 mg/dL (80-110); HEMOLYSIS < 15 (0-50); Potassium 3.9 mmol/L (3.4-5.1); Sodium 135 mmol/L (137-145)
[2024-02-03 05:32] LABS: Troponin I 0.045 ng/mL (0.01-0.034)
[2024-02-03 05:53] LABS: TSH w/ Reflex to FT4 2.49 uIU/mL (0.47-4.68)
[2024-02-03 06:00] VITALS: BP 138/76; PULSE 55; RESP 16; TEMP 36; O2SAT 95
[2024-02-03 08:00] VITALS: BP 131/78; PULSE 60; RESP 18; TEMP 36.1; O2SAT 96
[2024-02-03] MEDS: HEPARIN 5,000 UNIT/ML VIAL 5000 UNIT SUBCUT ×2 (08:42→21:34)
[2024-02-03 12:00] VITALS: BP 126/78; PULSE 57; RESP 17; TEMP 35.8; O2SAT 95
[2024-02-03] MEDS: FUROSEMIDE 40 MG/4 ML VIAL IV ×2 (12:11)
--- NOTE | 2024-02-03 13:26 | CM.DANOTE ---
Initial DCP Assessment Note Pt is a 78 yo male, resident of [facility], sent by , PCP on [place], admitted OBS for new onset CHF. PCP: Tristan Wilson Payer: MCR/NIDAP Reviewed chart, met w/patient and spouse, reviewed discharge plan. Patient lives independently with sp on [place] and is eager to return today. Patient/sp request a priority board pass to help them get back to [place], no reservations available. No barriers identified at this time to patient's safe discharge home; close outpatient f/u recommended- patient reports he has a stress test scheduled March 03 at . CM team will plan to follow clinical course closely in case any DC needs or concerns arise. RAMEZ Varela Discharge Planning/Care Management Discharge Assessment Start: 02/03/24 13:23 Freq: Status: Active Protocol: Document 02/03/24 13:23 CRISTOPHER (Rec: 02/03/24 13:26 CRISTOPHER [id number]) Discharge Planning Assessment Assigned Surface Lay Out Technician RAMEZ Encarnacion DPOA/Assigned Designee Name Maryann Rebecca, spouse Contact Information [phone] Advance Directives? No History Provided By Patient,Significant Other, Medical Record Prior Living Arrangements House Household Members spouse Type of transporation used prior to Drives own vehicle admit Independent with ADL's Yes Is patient alert and oriented? Yes Comment No AD Barriers to Discharge No Discharge Plan Home Transportation Arrangement Spouse Referrals Initiated None needed
[2024-02-03] MEDS: POTASSIUM CHLORIDE 20 MEQ TAB PO ×3 (14:47→18:34)
[2024-02-03 16:00] VITALS: BP 132/74; PULSE 56; RESP 19; TEMP 36.4; O2SAT 94
--- NOTE | 2024-02-03 17:00 | PM.PN.1 ---
Subjective Subjective Interval history: 78-year-old male with remote history of pipe tobacco use times 20 years, and probable untreated hypertension who was admitted last evening with acute onset congestive heart failure with exacerbation. Patient reports he is feeling quite a bit better today. He states he urinated quite a lot overnight. He notes onset of dyspnea in April of this year. He states he had had a virus shortly before that and he initially attributed his symptoms to that. He states he and his are very active, they hike a lot. He initially noted decreased ability to hike as much as usual. Assumed it was related to his previous viral illness. He figured he would get better but noted that his symptoms persisted. He was in and was seen by his PCP in November of this year after waiting 5 weeks for an appointment. He states while waiting for that appointment, he noticed an irregular heartbeat. His PCP did an EKG which revealed a left bundle branch block. He was set up with a ZIO patch which revealed episodes of V-tach, 9 runs with the longest being 8 beats, as well as 195 episodes of SVT. Low-dose beta-sandy was recommended. Echocardiogram and cardiology consult was also recommended. When he followed up with his PCP, he did complain of decreased exercise tolerance over the prior 2 months. He noted about a 25% reduction in his exercise capacity. He was set up for an echocardiogram and a nuclear stress test. Unfortunately, those were not available until February of 2024. He was placed on low-dose metoprolol. He evidently had labs done earlier this week and his PCP sent him to the hospital for admission. He has had orthopnea, progressive dyspnea on exertion to the point he reports he was panting to walk across the room yesterday. Denies chest pain, tightness, or pressure. Exam Vital Signs (past 8 hours): - 02/03/24 12:00 02/03/24 16:00 Temperature 96.5 F L 97.5 F L Pulse Rate 57 L 56 L Respiratory Rate 17 19 Blood Pressure 126/78 132/74 Pulse Oximetry 95 94 Oxygen Flow Rate 0 0 Oxygen Delivery Method Oximask Oxygen Flow Rate 0 Narrative Exam Narrative: GEN: Alert and oriented x 3, NAD HEENT:NC, Face symmetric CHEST: Respiratory excursions symmetric, CTAB CV: RRR, no M/R/G ABD: Soft, NT/ND, BT present in all 4 quadrants, no organomegaly or masses EXTR: warm, well perfused, no C/C/E SKIN: warm and dry, no rash NEURO: Alert and oriented x 3, nonfocal Objective Labs 02/03/24 04:58 02/03/24 04:58 Labs: Laboratory Results - last 24 hr 02/02/24 02/03/24 21:35 04:58 WBC 4.8 RBC 4.76 Hgb 14.3 Hct 42.7 MCV 89.7 MCH 30.0 MCHC 33.5 RDW 14.5 Plt Count 209 Neut % (Auto) 69.6 Lymph % (Auto) 16.1 L [place] % (Auto) 10.3 Eos % (Auto) 3.5 Baso % (Auto) 0.5 Neut # (Auto) 3400 Lymph # (Auto) 800 L [place] # (Auto) 500 Eos # (Auto) 200 Baso # (Auto) 0 Sodium 135 L Potassium 3.9 Chloride 105 Carbon Dioxide 25 BUN 22 H Creatinine 0.92 Estimated GFR > 60 BUN/Creatinine Ratio 23.9 H Glucose 95 Calcium 9.4 Troponin I 0.059 H 0.045 H TSH 2.49 PFSH Medical History Cough Fractures Mumps Chicken pox Social History household members: spouse Smoking Status: Former smoker alcohol intake: current Assessment & Plan Assessment & Plan narrative: 1. New onset acute systolic congestive heart failure Echocardiogram revealed severe cardiomyopathy with an ejection fraction of 20-25%. I spoke to Dr. Zamudio at [facility] who advised the patient needs further workup inclusive of a an angiogram. She feels there is a somewhat small possibility he will ultimately require bypass graft surgery, but that if he were to require it and we transferred him to [facility], he would need an additional transfer to a higher level of care. I did discuss this with the patient and he would prefer to be transferred only 1 time. Therefore we requested transfer to a hospital that has both Cardiology and Cardiothoracic surgery Services available. We will continue diuresis at this time. Given his history of tobacco use, probable hypertension (Clinic records reveal blood pressures are typically in the 140s systolic and 90s diastolic), as well as family history of coronary artery disease in his mother, as well as his development of exercise intolerance, I am concerned for possible coronary artery disease as the etiology. He does not have an alcohol use history or other clear etiology for his cardiomyopathy. 2. Elevated blood pressure As above, I suspect he has underlying hypertension. Blood pressures here have ranged as high as 159/50. He is on a low-dose beta sandy as noted for history of SVT. 3. History of SVT Continue metoprolol. 4. Elevated troponin Had a mildly elevated troponin on admission that peaked at 0.059 overnight. This morning it is 0.045. Code status Full Disposition Transfer to higher level of care when accepting hospital available Time-Based Coding :: [TOTAL MINUTES] spent with patient and on the chart (including review of chart, obtaining history, exam, reviewing outside data, placing orders, documenting exam and treatment plan, and counseling patient) on [DATE]. Quality VTE Deep Vein Thrombosis/Pulmonary Embolism Present on Admission: No
[2024-02-03 20:11] VITALS: BP 119/75; PULSE 60; RESP 18; TEMP 36.4; O2SAT 96
[2024-02-03 23:00] VITALS: BP 124/72; PULSE 60; RESP 18; TEMP 36.6; O2SAT 96
[2024-02-04] MEDS: FUROSEMIDE 40 MG/4 ML VIAL IV ×2 (02:02→12:08)
[2024-02-04 03:00] VITALS: BP 124/79; PULSE 18; RESP 18; TEMP 36.2; O2SAT 97
[2024-02-04 04:38] LABS: Add Manual Diff / Slide Review NO; Basophils Absolute Auto 0 /uL (0-100); Basophils Percent Auto 0.7 % (0-2); Eosinophils Absolute Auto 200 /uL (0-450); Eosinophils Percent Auto 3.6 % (2-4); Hematocrit 45.9 % (41-53); Hemoglobin 15.3 g/dL (13.5-17.5); Lymphocytes Absolute Auto 900 /uL (1100-4500); Lymphocytes Percent Auto 20.7 % (25-40); Mean Corpuscular HGB Conc 33.3 % (30-36); Mean Corpuscular Hemoglobin 29.7 PG (26-34); Mean Corpuscular Volume 89.3 fL (80-100); Monocytes Absolute Auto 600 /uL (0-900); Monocytes Percent Auto 13.6 % (3-14); Neutrophils Absolute Auto 2700 /uL (1500-7000); Neutrophils Percent Auto 61.4 % (50-75); Platelet Count 229 X10^3/uL (150-400); Red Blood Cell Count 5.15 X10^6/uL (4.5-5.9); Red Cell Distribution Width 14.5 % (11.6-14.8); White Blood Cell Count 4.4 X10^3/uL (4.5-11.0)
[2024-02-04 04:47] LABS: BUN Creatinine Ratio 26.1 (6-22); Blood Urea Nitrogen 31 mg/dL (9-20); Calcium 9.5 mg/dL (8.4-10.2); Carbon Dioxide 25 mmol/L (22-32); Chloride 106 mmol/L (98-107); Estimated Glomerular Filt Rate > 60 mL/min (>60); Glucose 93 mg/dL (80-110); HEMOLYSIS < 15 (0-50); Potassium 4.4 mmol/L (3.4-5.1); Sodium 138 mmol/L (137-145)
[2024-02-04 08:00] VITALS: BP 127/70; PULSE 60; RESP 17; TEMP 35.7; O2SAT 96
--- NOTE | 2024-02-04 09:19 | CM.DPNOTE ---
Addendum entered by RAMEZ Coello 02/04/24 13:45: Met with spouse in [facility], concerned about his OP appt scheduled here tomorrow (Monday) with Dr. Watts. HEAD PAPER TESTER messaged TCM team (pt's PCP ) to update them to cancel his OP appt. Per chart review, dc order in. Pt transferring this afternoon to [facility]. SL Original Note: DCP Note HEAD PAPER TESTER reviewed EMR. per RN report, plan to transfer pt to [facility] due to EF of 20-25%. Accepted, just waiting on a bed. May be tomorrow. P: transfer to [facility] Pending bed availability. CM team will continue to follow as needed RAMEZ Coello
[2024-02-04] MEDS: HEPARIN 5,000 UNIT/ML VIAL 5000 UNIT SUBCUT (09:21)
[2024-02-04 12:00] VITALS: BP 126/75; PULSE 53; RESP 18; TEMP 36; O2SAT 96
--- NOTE | 2024-02-04 15:22 | PC.NURSE ---
report given to HAMLET manager sales removed. Patient assisted to stretcher. Report given to Eduardo at [facility]. All questions answered.
--- NOTE | 2024-02-04 19:10 | PM.DS.1 ---
History of Present Illness History of Present Illness Chief complaint: sent by , heart issues Narrative: Per H&P: The patient was a 78-year-old male with a 4 month history of progressive shortness a breath with exertion. His doctor, on [facility], obtained a chest x-ray of in pleural effusions and sent him in for further evaluation. Here he was found to have a negative CTA for PE but bilateral pleural effusions and evidence of acute heart failure. The request is admit the patient for further evaluation as he lives in [facility]. The patient was not hypoxic. He denies history of heart disease. No episodes of chest pain. He was had orthopnea in his been propping himself up. No leg edema. He was have a family history of heart attack in his mother. He denies any history of diuretics or untreated hypertension. He was somewhat hypertensive today but states that that is likely situational. He quit smoking about 40 years ago. He lives in [facility], with his . 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 A thoracentesis was ordered outpatient for and scheduled for Monday here. It look in his chest x-ray am not sure he will necessarily need a thoracentesis. I believe that his symptoms will likely be controlled with diuretics and the they relate to a new diagnosis of heart failure. Discharge Providers Provider Date of admission: 02/02/24 17:05 Discharge Date: 02/04/24 Primary care physician: Tristan Wilson MD Discharge provider: Genesis Juarez MD Summary Hospital Course Discharge Diagnosis: 1. New onset acute systolic CHF 2. Severe Cardiomyopathy w/EF 20-25% 3. Elevated BP, probably HTN 4. Hx of SVT 5. Elevated troponin, improved Hospital Course: Pt reported onset of dyspnea in April of this year. He states he had had a virus shortly before that and he initially attributed his symptoms to that. He states he and his are very active, they hike a lot. He initially noted decreased ability to hike as much as usual. Assumed it was related to his previous viral illness. He figured he would get better but noted that his symptoms persisted. He was in and was seen by his PCP in November of this year after waiting 5 weeks for an appointment. He states while waiting for that appointment, he noticed an irregular heartbeat. His PCP did an EKG which revealed a left bundle branch block. He was set up with a ZIO patch which revealed episodes of V-tach, 9 runs with the longest being 8 beats, as well as 195 episodes of SVT. Low-dose beta-sandy was recommended. Echocardiogram and cardiology consult was also recommended. When he followed up with his PCP, he did complain of decreased exercise tolerance over the prior 2 months. He noted about a 25% reduction in his exercise capacity. He was set up for an echocardiogram and a nuclear stress test. Unfortunately, those were not available until February of 2024. He was placed on low-dose metoprolol. He evidently had labs done earlier this week and his PCP sent him to the hospital for admission. He has had orthopnea, progressive dyspnea on exertion to the point he reports he was panting to walk across the room yesterday. Denies chest pain, tightness, or pressure. He presented to the ED and was found to be in acute CHF. He was admitted for diuresis and further work-up. Pt diuresed well and had improvement of symptoms. Echo revealed evidence of an acute severe cardiomyopathy. Dr. Zamudio, who read his echocardiogram, recommended transfer for work-up inclusive of a cardiac angiogram. She noted there was a small chance he could require revascularization surgery and if he transferred for cardiac work-up to [facility], he would require an additional transfer to a higher level of care. Pt requested a transfer to a hospital that could provide all potentially needed services. He was accepted to [facility], who had a bed available on the date of d/c. He is transferred to [facility] in stable condition. Status at Discharge Cognitive/behavioral status at discharge: at baseline, oriented Functional status at discharge: independent ambulation Overall status at discharge: patient is not back to baseline Time Spent with Patient Time spent: Greater than 30 minutes Exam Vital Signs (past 8 hours): - 02/04/24 12:00 Temperature 96.8 F L Pulse Rate 53 L Respiratory Rate 18 Blood Pressure 126/75 Pulse Oximetry 96 Oxygen Flow Rate 0 Oxygen Delivery Method Oximask Oxygen Flow Rate 0 Narrative Exam Narrative: GEN: Alert and oriented x 3, NAD HEENT:NC, Face symmetric CHEST: Respiratory excursions symmetric, CTAB CV: RRR, no M/R/G ABD: Soft, NT/ND, BT present in all 4 quadrants, no organomegaly or masses EXTR: warm, well perfused, no C/C/E SKIN: warm and dry, no rash NEURO: Alert and oriented x 3, nonfocal Objective Labs 02/04/24 04:00 02/04/24 04:00 Labs: Laboratory Results - last 24 hr 02/04/24 04:00 WBC 4.4 L RBC 5.15 Hgb 15.3 Hct 45.9 MCV 89.3 MCH 29.7 MCHC 33.3 RDW 14.5 Plt Count 229 Neut % (Auto) 61.4 Lymph % (Auto) 20.7 L [place] % (Auto) 13.6 Eos % (Auto) 3.6 Baso % (Auto) 0.7 Neut # (Auto) 2700 Lymph # (Auto) 900 L [place] # (Auto) 600 Eos # (Auto) 200 Baso # (Auto) 0 Sodium 138 Potassium 4.4 Chloride 106 Carbon Dioxide 25 BUN 31 H Creatinine 1.19 Estimated GFR > 60 BUN/Creatinine Ratio 26.1 H Glucose 93 Calcium 9.5 PFSH Medical History Cough Fractures Mumps Chicken pox Social History household members: spouse Smoking Status: Former smoker alcohol intake: current Discharge Plan Discharge Plan Patient Disposition: [facility] Other facility: [facility] Under care of provider: Dr. Katelin Naylor, Hospitalist Discharge Health Status Multidrug resistant organism: No MDRO Diet/Activity/Treatments Diet: Diet as Tolerated Diet comment: NPO after midnight for heart cath Activity: as aron Oxygen: N/A Discharge Data Primary Care Provider: Tristan Wilson Attending Provider: Faizan Alford Admit Date/Time: 02/02/24 17:05 Quality VTE Deep Vein Thrombosis/Pulmonary Embolism Present on Admission: No
== END 2024-02-04 14:15 | disposition short-term general hospital (02) | DRG 291 ==
LOC: ED 17:05 → AC 17:12
PROVIDERS: Emergency Medicine; Internal Medicine; Admitting Provider Hospitalist; Emergency Provider Physician Assistant; PCP Family Medicine; Referring Provider Physician Assistant; Visit Provider Hospitalist
DX: I11.0 Hypertensive heart disease with heart failure (principal); I50.21 Acute systolic (congestive) heart failure; I42.8 Other cardiomyopathies; R79.89 Other specified abnormal findings of blood chemistry; Z87.891 Personal history of nicotine dependence; Z86.79 Personal history of other diseases of the circulatory system
CPT/HCPCS: 36415; 71275; 80048; 82607; 83880; 84443; 84484; 85025; 85379; 93005; 93306; 99284; G0378; J1644; J1940; Q9967

== ENCOUNTER → 2024-02-09 12:01 | Outpatient (CLI) | payer MEDICARE, SELFPAY ==
[2024-02-02 17:31] VITALS: BMI 22.8
[2024-02-09 19:51] LABS: Add Manual Diff / Slide Review NO; Basophils Absolute Auto 0 /uL (0-100); Basophils Percent Auto 0.4 % (0-2); Eosinophils Absolute Auto 200 /uL (0-450); Eosinophils Percent Auto 4.5 % (2-4); Hematocrit 44.2 % (41-53); Hemoglobin 14.9 g/dL (13.5-17.5); Lymphocytes Absolute Auto 800 /uL (1100-4500); Lymphocytes Percent Auto 21.3 % (25-40); Mean Corpuscular HGB Conc 33.6 % (30-36); Mean Corpuscular Hemoglobin 30.1 PG (26-34); Mean Corpuscular Volume 89.5 fL (80-100); Monocytes Absolute Auto 500 /uL (0-900); Monocytes Percent Auto 13.6 % (3-14); Neutrophils Absolute Auto 2300 /uL (1500-7000); Neutrophils Percent Auto 60.2 % (50-75); Platelet Count 209 X10^3/uL (150-400); Red Blood Cell Count 4.94 X10^6/uL (4.5-5.9); White Blood Cell Count 3.8 X10^3/uL (4.5-11.0)
[2024-02-09 19:56] LABS: BUN Creatinine Ratio 28.6 (6-22); Blood Urea Nitrogen 28 mg/dL (9-20); Calcium 9.7 mg/dL (8.4-10.2); Carbon Dioxide 24 mmol/L (22-32); Chloride 104 mmol/L (98-107); Estimated Glomerular Filt Rate > 60 mL/min (>60); Glucose 85 mg/dL (80-110); HEMOLYSIS 29 (0-50); Potassium 4.5 mmol/L (3.4-5.1); Sodium 134 mmol/L (137-145)
[2024-02-09 20:08] LABS: NT-proBNP (BNP-Adult 18+) 2360 pg/mL (<450); Troponin I 0.025 ng/mL (0.01-0.034)
[2024-02-09 20:27] LABS: TSH w/ Reflex to FT4 3.53 uIU/mL (0.47-4.68)
== END ==
PROVIDERS: PCP Family Medicine; Visit Provider Family Medicine
DX: I11.0 Hypertensive heart disease with heart failure (principal); I50.22 Chronic systolic (congestive) heart failure; I47.29 Other ventricular tachycardia; J90 Pleural effusion, not elsewhere classified; R06.09 Other forms of dyspnea
CPT/HCPCS: 80048; 83880; 84443; 84484; 85025

== ENCOUNTER → 2024-03-25 13:47 | Outpatient (CLI) | payer MEDICARE, SELFPAY ==
[2024-02-09 12:15] VITALS: BMI 22.8
[2024-03-25 20:06] LABS: Blood Urea Nitrogen 25 mg/dL (9-20); Calcium 9.3 mg/dL (8.4-10.2); Carbon Dioxide 29 mmol/L (22-32); Chloride 104 mmol/L (98-107); Estimated Glomerular Filt Rate > 60 mL/min (>60); Glucose 88 mg/dL (80-110); HEMOLYSIS < 15 (0-50); Potassium 4.2 mmol/L (3.4-5.1); Sodium 139 mmol/L (137-145)
== END ==
PROVIDERS: PCP Family Medicine; Visit Provider Internal Medicine Cardiovascular Disease
DX: I50.20 Unspecified systolic (congestive) heart failure (principal)
CPT/HCPCS: 80048

== ENCOUNTER → 2024-07-17 13:44 | Outpatient (CLI) | payer MEDICARE, SELFPAY ==
[2024-02-09 12:15] VITALS: BMI 22.8
[2024-07-17 19:44] LABS: BUN Creatinine Ratio 28.8 (6-22); Blood Urea Nitrogen 32 mg/dL (9-20); Calcium 9.4 mg/dL (8.4-10.2); Carbon Dioxide 23 mmol/L (22-32); Chloride 108 mmol/L (98-107); Estimated Glomerular Filt Rate > 60 mL/min (>60); Glucose 101 mg/dL (70-99); HEMOLYSIS < 15 (0-50); Potassium 4.1 mmol/L (3.4-5.1); Sodium 139 mmol/L (137-145)
== END ==
PROVIDERS: PCP Family Medicine; Visit Provider Internal Medicine Cardiovascular Disease
DX: I50.20 Unspecified systolic (congestive) heart failure (principal)
CPT/HCPCS: 80048